=== PATIENT | female | born 1960 | race Caucasian/White ===

== ENCOUNTER 2020-07-05 12:43 | Emergency (ER) | payer BC, OTHER ==
[~2020-07-05] VITALS: Ht 162.6 cm; Wt 52.3 kg
--- NOTE | 2020-07-05 13:18 | ED Chest Pain ---
General Chief Complaint: Chest Pain Stated Complaint: CHEST PAIN; HIGH BP Source: patient Exam Limitations: no limitations History of Present Illness Date Seen by Provider: Jul 05, 2020 Time Seen by Provider: 13:00 Initial Comments 59-year-old female presents with onset of chest discomfort/pressure occurring about 1 hour prior to arrival. States that she was at work and started to fill lightheaded and weak. States that this normally doesn't happen to her so she was concerned with nurse's office and had her blood pressure checked and it was 120/80, which she states is elevated for her. Denies recent illness, fever or chills, concern of COVID-19 Allergies and Home Medications Allergies Coded Allergies: No Known Drug Allergies (Unverified , 07/05/20) Patient Home Medication List Home Medication List Reviewed: Yes Review of Systems Review of Systems Constitutional: No chills, No diaphoresis; dizziness; No fever; malaise, weakness EENTM: No Symptoms Reported Respiratory: Denies Cough, Denies SOA at Rest Cardiovascular: Denies Chest Pain ("pressure"), Denies Edema, Denies Irregular Heart Rate; Lightheadedness; Denies Palpitations, Denies Syncope Gastrointestinal: Denies Abdominal Pain, Denies Diarrhea, Denies Nausea, Denies Poor Appetite, Denies Vomiting Musculoskeletal: No back pain, No joint pain, No muscle pain Skin: No change in color, No rash Psychiatric/Neurological: Denies Headache, Denies Numbness, Denies Paresthesia, Denies Pre-Existing Deficit, Denies Seizure Past Locaslj-Obzcid-Ugddbl Hx Past Med/Social Hx: Reviewed Nursing Past Med/Soc Hx Physical Exam Vital Signs Vital Signs - First Documented Capillary Refill : Height, Weight, BMI Height: '" Weight: lbs. oz. kg; BMI Method: General Appearance: No Apparent Distress, WD/WN HEENT: PERRL/EOMI, Normal ENT Inspection Neck: Non Tender, Supple Respiratory: Chest Non Tender, Lungs Clear, Normal Breath Sounds, No Accessory Muscle Use, No Respiratory Distress Cardiovascular: Regular Rate, Rhythm, No Edema, No Gallop, No JVD, Normal Peripheral Pulses Gastrointestinal: Normal Bowel Sounds, Non Tender, Soft Extremity: Normal Capillary Refill, Non Tender, No Calf Tenderness Neurologic/Psychiatric: Alert, Oriented x3, No Motor/Sensory Deficits, Normal Mood/Affect Skin: Normal Color, Warm/Dry Progress/Results/Core Measures Results/Orders Lab Results Laboratory Tests Test 07/05/20 13:00 07/05/20 14:38 07/05/20 15:23 Range/Units White Blood Count 7.2 4.3-11.0 10^3/uL Red Blood Count 4.12 L 4.35-5.85 10^6/uL Hemoglobin 12.1 11.5-16.0 G/DL Hematocrit 38 35-52 % Mean Corpuscular Volume 91 80-99 FL Mean Corpuscular Hemoglobin 29 25-34 PG Mean Corpuscular Hemoglobin Concent 32 32-36 G/DL Red Cell Distribution Width 13.2 10.0-14.5 % Platelet Count 250 130-400 10^3/uL Mean Platelet Volume 10.4 7.4-10.4 FL Immature Granulocyte % (Auto) 0 % Neutrophils (%) (Auto) 50 42-75 % Lymphocytes (%) (Auto) 39 12-44 % Monocytes (%) (Auto) 8 0-12 % Eosinophils (%) (Auto) 2 0-10 % Basophils (%) (Auto) 0 0-10 % Neutrophils # (Auto) 3.6 1.8-7.8 X 10^3 Lymphocytes # (Auto) 2.8 1.0-4.0 X 10^3 Monocytes # (Auto) 0.6 0.0-1.0 X 10^3 Eosinophils # (Auto) 0.2 0.0-0.3 10^3/uL Basophils # (Auto) 0.0 0.0-0.1 10^3/uL Immature Granulocyte # (Auto) 0.0 0.0-0.1 10^3/uL D-Dimer 0.62 H 0.00-0.49 UG/ML Sodium Level 139 135-145 MMOL/L Potassium Level 4.0 3.6-5.0 MMOL/L Chloride Level 103 98-107 MMOL/L Carbon Dioxide Level 26 21-32 MMOL/L Anion Gap 10 5-14 MMOL/L Blood Urea Nitrogen 14 7-18 MG/DL Creatinine 0.79 0.60-1.30 MG/DL Estimat Glomerular Filtration Rate > 60 BUN/Creatinine Ratio 18 Glucose Level 103 70-105 MG/DL Calcium Level 9.4 8.5-10.1 MG/DL Corrected Calcium 9.2 8.5-10.1 MG/DL Total Bilirubin 0.2 0.1-1.0 MG/DL Aspartate Amino Transf (AST/SGOT) 18 5-34 U/L Alanine Aminotransferase (ALT/SGPT) 13 0-55 U/L Alkaline Phosphatase 72 40-136 U/L Troponin I < 0.30 < 0.30 <0.30 NG/ML Total Protein 7.1 6.4-8.2 GM/DL Albumin 4.3 3.2-4.5 GM/DL My Orders Orders - ROVENSTMEGHANA SCOTT DO Ed Iv/Invasive Line Start (07/05/20 13:13) Cbc With Automated Diff (07/05/20 13:13) Comprehensive Metabolic Panel (07/05/20 13:13) Fibrin Degradation Products (07/05/20 13:13) Troponin I Fs (07/05/20 13:13) Chest 1 View Ap/Pa Only (07/05/20 13:13) Ekg Tracing (07/05/20 13:13) Troponin I Fs (07/05/20 15:00) Ekg Tracing (07/05/20 15:00) Ct Angio Chest W (07/05/20 14:32) Iohexol Injection (Omnipaque 350 Mg/Ml 1 (07/05/20 14:45) Received Contrast (Hold Metformin- Contr (07/05/20 14:45) Sodium Chloride Flush (Catheter Flush Sy (07/05/20 14:45) Ns (Ivpb) (Sodium Chloride 0.9% Ivpb Bag (07/05/20 14:45) Coronavirus Sars-Cov-2 So 2018 (07/05/20 14:36) Medications Given in ED Current Medications Medications Dose Ordered Sig/Dell Route Start Time Stop Time Status Last Admin Dose Admin Iohexol 100 ml ONCE ONCE IV 07/05/20 14:45 07/05/20 14:46 DC 07/05/20 15:00 100 ML Sodium Chloride 10 ml NEEDED PRN IV 07/05/20 14:45 07/05/20 15:00 10 ML Sodium Chloride 100 ml ONCE ONCE IV 07/05/20 14:45 07/05/20 14:46 DC 07/05/20 15:00 100 ML Vital Signs/I&O 07/05/20 07/05/20 07/05/20 12:50 12:50 16:20 Temp 35.9 36.1 Pulse 78 70 Resp 15 12 B/P (MAP) 139/78 (98) 153/96 Pulse Ox 98 100 O2 Delivery Room Air Room Air Room Air Initial ECG Impression Date: Jul 05, 2020 Initial ECG Impression Time: 13:03 Initial ECG Rate: 75 Initial ECG Rhythm: Normal Sinus Initial ECG Intervals: Normal Initial ECG Impression: Normal Initial ECG Comparisson: No Previous ECG Available EKG : EKG Time: 15:27 Rate: 66 Rhythm: Normal Sinus Intervals: Normal ECG Comparisson: Unchanged ECG Impression: Normal Comment no change p [address] changes Diagnostic Imaging Diagonstic Imaging: Xray Comments Portable AP view of the chest is obtained. No previous studies available this time for comparison. Heart size and pulmonary vascularity are within normal limits. There is no evidence of pneumothorax or consolidation. Tiny calcified granuloma seen in the left midlung. There is also approximately 1 cm rounded density in the apical aspect of the right upper lobe. This may be calcified. No consolidation, pneumothorax or pleural fluid is identified. IMPRESSION: Probable granulomatous residua in the lungs. 1 cm nodule in the right upper lobe is most suggestive of calcified granuloma although correlation with older studies if possible would be useful. CT imaging could be considered for further characterization. Dictated on workstation # [id number] Dict: 07/05/20 1342 Trans: 07/05/20 1349 [facility] [id number] Interpreted by: DARWIN LEE MD Electronically signed by: IMPRESSION: 1. There is no evidence for an acute cardiopulmonary abnormality. In particular, there is no sign of a pulmonary embolus or of a dissection. 2. The nodular density in the right upper lung is of uncertain etiology. Considerations and recommendations as above. Dictated on workstation # [id number] Dict: 07/05/20 1511 Trans: 07/05/20 1530 [facility] [id number] Interpreted by: SHIRLEY MOYER MD Electronically signed by: Departure Impression Primary Impression: Chest pain Qualified Codes: R07.9 - Chest pain, unspecified Additional Impressions: Dizziness Lung nodule Disposition: HOME, SELF-CARE Condition: Stable Departure-Patient Inst. Decision time for Depature: 16:13 Referrals: POPPY NINO MD Patient Instructions: Dizziness, Nonvertigo, (DC), Chest Pain (DC), Pulmonary Nodule Add. Discharge Instructions: See your PCP in 1 week. Follow up at the nearest ER for any worsening of your symptoms. You have been tested for Covid-19.....at this time you should "self quarantine" until you receive a call with your results. You should also see your PCP in the next 2 weeks regarding the potential of further evaluation of your lung nodule noted on your chest x-ray and CT imaging. Call Dr Nino (Psychiatry Resident) to schedule a stress test next week. Call 911 or return to the nearest ER for any worsening symptoms of chest pain. You are advised to take a baby aspirin (81mg) daily. All discharge instructions reviewed with patient and/or family. Voiced understanding. MEGHANA MEJÍA DO Jul 05, 2020 13:18
--- NOTE | 2020-07-05 13:49 | Diagnostic Imaging Report ---
Indication: Chest pain Portable AP view of the chest is obtained. No previous studies available this time for comparison. Heart size and pulmonary vascularity are within normal limits. There is no evidence of pneumothorax or consolidation. Tiny calcified granuloma seen in the left midlung. There is also approximately 1 cm rounded density in the apical aspect of the right upper lobe. This may be calcified. No consolidation, pneumothorax or pleural fluid is identified. IMPRESSION: Probable granulomatous residua in the lungs. 1 cm nodule in the right upper lobe is most suggestive of calcified granuloma although correlation with older studies if possible would be useful. CT imaging could be considered for further characterization. Dictated by: Dictated on workstation # [id number]
[2020-07-05 13:59] LABS: HEMATOCRIT 38 % (35-52); HEMOGLOBIN 12.1 G/DL (11.5-16.0); MEAN CORPUSCULAR HEMOGLOBIN 29 PG (25-34); MEAN CORPUSCULAR HGB CONC 32 G/DL (32-36); MEAN CORPUSCULAR VOLUME 91 FL (80-99); PLATELET COUNT 250 10^3/uL (130-400); WHITE BLOOD COUNT 7.2 10^3/uL (4.3-11.0)
[2020-07-05 14:00] LABS: BASOPHILS % (AUTO) 0 % (0-10); EOSINOPHILS # (AUTO) 0.2 10^3/uL (0.0-0.3); EOSINOPHILS % (AUTO) 2 % (0-10); LYMPHOCYTES # (AUTO) 2.8 X 10^3 (1.0-4.0); LYMPHOCYTES % (AUTO) 39 % (12-44); MEAN PLATELET VOLUME 10.4 FL (7.4-10.4); MONOCYTES # (AUTO) 0.6 X 10^3 (0.0-1.0); MONOCYTES % (AUTO) 8 % (0-12); NEUTROPHILS # (AUTO) 3.6 X 10^3 (1.8-7.8); NEUTROPHILS % (AUTO) 50 % (42-75); SODIUM 139 MMOL/L (135-145)
[2020-07-05 14:01] LABS: ALANINE AMINOTRANSFERASE 13 U/L (0-55); ALBUMIN 4.3 GM/DL (3.2-4.5); ALKALINE PHOSPHATASE 72 U/L (40-136); BILIRUBIN,TOTAL 0.2 MG/DL (0.1-1.0); BUN/CREATININE RATIO 18; CALCIUM 9.4 MG/DL (8.5-10.1); CARBON DIOXIDE 26 MMOL/L (21-32); CHLORIDE 103 MMOL/L (98-107); CREATININE SERUM 0.79 MG/DL (0.60-1.30); GFR ESTIMATED > 60; GLUCOSE 103 MG/DL (70-105); TOTAL PROTEIN 7.1 GM/DL (6.4-8.2)
[2020-07-05] MEDS ORDERED: HOLD METFORMIN - RECEIVED CONTRAST 20 ML VIAL IV SCH (14:45)
[2020-07-05] MEDS ORDERED: CATHETER FLUSH 10 ML SYR IV PRN (14:45)
[2020-07-05] MEDS ORDERED: NS 100 ML (IVPB) BAG IV ONE (14:45)
[2020-07-05] MEDS ORDERED: IOHEXOL 350 MG/ML 100 ML (OMNIPAQUE 350) VIAL IV ONE (14:45)
--- NOTE | 2020-07-05 15:30 | Diagnostic Imaging Report ---
PROCEDURE: CT angiography of the chest with contrast. TECHNIQUE: Multiple contiguous axial images were obtained through the chest after uneventful bolus administration of intravenous contrast. 3D reconstructed CTA MIP acquisitions were also performed. Auto Exposure Controls were utilized during the CT exam to meet ALARA standards for radiation dose reduction. INDICATION: Chest pain, elevated D-dimer There are no prior CTA chest examinations available for comparison. The plain film examination of the chest performed prior to this study failed to show any evidence for an acute cardiopulmonary abnormality. On this study, there is no defect within the pulmonary arteries to indicate a pulmonary embolus. The aorta is not abnormally dilated and there is no sign of a dissection. The heart size is within normal limits. Sparse coronary artery calcifications are evident. There is no sign of failure, pneumonia or of a pleural effusion to indicate an acute abnormality. The bone windows are unremarkable for a fracture or for a destructive lesion. The report of the plain film exam astutely noted a 1 cm nodule in the right upper lobe. That finding is again evident on this study (image 25 of 152). This nodule has a smooth margin but is not clearly calcified. I do suspect that this is a benign process. The possibility that this is related to a malignant lesion cannot be entirely excluded however. If previous exams are available, they would be helpful for comparison. If there are no previous studies available, then a PET CT would be recommended to exclude malignancy in this area. If the PET/CT exam is not performed, then a short-term (three-month) follow-up CT chest exam would be recommended. There is no mediastinal or hilar adenopathy. The thyroid gland, where visualized, is unremarkable. There is no obvious breast mass identified. The sections through the upper abdomen failed to show any sign of an acute abnormality. IMPRESSION: 1. There is no evidence for an acute cardiopulmonary abnormality. In particular, there is no sign of a pulmonary embolus or of a dissection. 2. The nodular density in the right upper lung is of uncertain etiology. Considerations and recommendations as above. Dictated by: Dictated on workstation # [id number]
[2020-07-05 16:20] VITALS: BP 153/96
== END 2020-07-05 16:20 | disposition home or self-care (01) ==
LOC: ER FS 12:45
DX: R07.9 Chest pain, unspecified (principal); R42 Dizziness and giddiness; R91.1 Solitary pulmonary nodule; Z20.828 Contact with and (suspected) exposure to other viral communicable diseases
CPT/HCPCS: 36415; 71045; 71275; 80053; 84484; 85025; 85379; 93005; 99284; U0002; 87635

== ENCOUNTER → 2021-09-03 | Outpatient (CLI) | payer BC, OTHER ==
--- NOTE | 2021-09-03 17:38 | Diagnostic Imaging Report ---
PROCEDURE: MRI lumbar spine. TECHNIQUE: Multiplanar, multisequence MRI of the lumbar spine was performed without contrast. INDICATION: Back and pelvic pain. No priors. There is mild leftward convexity mid to upper lumbar scoliotic curvature. No segmentation anomaly or dysraphism. The conus appeared normal. There is normal dispersal of the nerves of the cauda equina. There is no fracture or acute marrow signal pathology. There is some mild edematous Modic type I changes at L3-L4 and L5-S1 with some fatty type II changes across the L4-L5 endplates. Pedicles appeared intact. No paravertebral mass, hemorrhage or fluid collection. Ligamentous structures unremarkable. The T12-L1 and the L1-L2 levels appeared unremarkable aside from mild anteriorly directed endplate osteophytes. There was no stenosis. L2-L3: There is disc desiccation, disc stature loss, endplate osteophytes, and circumferential disc bulge. No focal herniation and no resultant significant narrowing of the spinal canal, neural foramina or lateral recesses. L3-L4: There is disc desiccation, stature loss and diffuse annular bulge with small right paramedian broad-based disc protrusion indenting the ventral thecal sac but resulting in no substantial degree of canal stenosis. This level shows mild to moderate right foraminal stenosis. The left foramen, however, widely patent. L4-L5: There is disc desiccation, stature loss, and diffuse annular bulge with endplate osteophytes. The findings result in moderate severity of left and moderate right neural foraminal stenosis but no significant canal narrowing. L5-S1: Disc desiccation and bulge with facet arthrosis are present but no significant canal stenosis. There is borderline right and moderate left foraminal stenoses. IMPRESSION: No substantial degree of canal narrowing, multilevel [id number] foraminal stenoses owing to disc material and endplate osteophytes as described. Some scoliotic curvature convex to the left and multilevel Modic changes to the endplates as described but no acute appearing bony pathology or fracture Dictated by: Dictated on workstation # [id number]
== END ==
LOC: RAD 14:45
PROVIDERS: ATTEND Nurse Practitioner Family
DX: M47.817 Spondylosis without myelopathy or radiculopathy, lumbosacral region (principal); M51.26 Other intervertebral disc displacement, lumbar region; M51.27 Other intervertebral disc displacement, lumbosacral region; M51.36 Other intervertebral disc degeneration, lumbar region; M51.37 Other intervertebral disc degeneration, lumbosacral region; M48.061 Spinal stenosis, lumbar region without neurogenic claudication
CPT/HCPCS: 72148

== ENCOUNTER 2021-09-29 08:44 | Emergency (ER) | payer OTHER ==
[~2021-09-29] VITALS: Ht 162.5 cm; Wt 52.3 kg
--- OUTSIDE RECORDS SUMMARY | 2021-09-29 08:48 | XMS REPORT | Clinical Summary ---
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 Name Role Phone PCP Unavailable Allergies Comments Active Allergy Reactions Severity Noted Date Codeine Headache 10/17/2019 Medications Not on file Active Problems Not on file Social History Date Tobacco Use Types Packs/Day Years Used Never Assessed Sex Assigned at Date Recorded Not on file Last Filed Vital Signs Not on file Plan of Treatment Not on file Results Not on filefrom Last 3 Months Insurance Type Payer Benefit Subscriber ID Effective Phone Address Plan / Dates Group [facility] OUT OF [id number] 2019-[address] PREF [facility] [id number] [place] [address] (Home) [place], [place] [address] [address] [place] Personal/F Self [address] [place] [address] (Home) [place] [address] Advance Directives For more information, please contact: [phone] 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
[2021-09-29] MEDS ORDERED: fentaNYL INJ 100 MCG/2 ML AMP IM STA (09:04)
[2021-09-29] MEDS ORDERED: ORPHENADRINE 60 MG/2 ML (NORFLEX) AMP (ED ONLY) IM STA (09:04)
--- NOTE | 2021-09-29 09:20 | ED General ---
General Chief Complaint: Back Problems Stated Complaint: BACK PAIN Nursing Triage Note: Patient presents to the ED with c/o back pain. She reports that she has recently been diagnosed with DDD. Pain worsening last night. Went to urgent care and received IM Toradol and Dexamethosone with no pain relief. Also states she took 1/2 tablet of Valium. Denies any injury. Source of Information: Patient, Old Records History of Present Illness Date Seen by Provider: Sep 29, 2021 Time Seen by Provider: 08:49 Initial Comments 60 yo female presenting with complaints of acute pain in left lower back and hip that started last night. She denies any fall or injury or strain or lifting that might of triggered this. She does have some chronic low back pain that has been worse recently and had an MRI September 03 that showed degenerative spine changes. She states that the pain she is having now is new and different. She did try taking a Valium 5 mg that she has prescribed from nurse practitioner Mikey through the [facility] clinic. She states that that really was not making any difference with her pain. She still felt like she was having spasms and sharp pains especially in her left hip with trying to sit or put pressure on her hip. She denies any loss of bowel or bladder control. She has had no pain shooting down her leg with this acute pain since last night. She has no chronic medications at home for pain in regards to her back, other than the Valium. She had tried going to Urgent Care this morning and they had given her Dexamethasone, Depo-Medrol, Toradol. She did not get any relief of her pain with those meds so she came to the ED. Timing/Duration: 12 Hours Severity: Severe Modifying Factors: improves with Movement (sitting and moving as well as walking makes the pain worse in left hip and low back); worse with Other (sitting or laying down makes the pain worse) Associated Systoms: No Chest Pain, No Cough, No Diaphoresis, No Fever/Chills, No Headaches, No Loss of Appetite, No Malaise, No Nausea/Vomiting, No Rash, No S eizure, No Shortness of Air, No Syncope, No Weakness Allergies and Home Medications Allergies Coded Allergies: codeine (Verified Adverse Reaction, Unknown, migraine, 09/29/21) phenazopyridine (Verified Adverse Reaction, Unknown, vomiting, 09/29/21) Uncoded Allergies: sodium pentathol (Adverse Reaction, Unknown, 09/29/21) Patient Home Medication List Home Medication List Reviewed: Yes Gabapentin (Gabapentin) 100 Mg Capsule, 100 MG PO Q8H Prescribed by: FRANNY NEFF on 09/29/21 1056 Oxycodone HCl/Acetaminophen (Oxycodone-Acetaminophen 5-325) 1 Each Tablet, 1 EACH PO Q4H PRN for PAIN-SEVERE (8-10) Prescribed by: FRANNY NEFF on 09/29/21 1057 Review of Systems Review of Systems Constitutional: No chills, No fever EENTM: no symptoms reported Respiratory: no symptoms reported Cardiovascular: no symptoms reported Gastrointestinal: no symptoms reported Genitourinary: see HPI Musculoskeletal: see HPI Skin: No rash Psychiatric/Neurological: Denies Numbness, Denies Paresthesia Hematologic/Lymphatic: Denies Blood Clots Past Yuqakkt-Yduroj-Mfuokv Hx Patient Social History Tobacco Use?: No Use of E-Cig and/or Vaping dev: No Substance use?: No Alcohol Use?: No Pt feels they are or have been: No Immunizations Up To Date Influenza Vaccine Up-to-Date: No; Not Current First/Initial COVID19 Vaccinat: Not currently vaccinated Seasonal Allergies Seasonal Allergies: No Past Medical History Surgery/Hospitalization HX: DDD; Gastritis; Chronic Constipation; Bennets Esophagus; Hernia repair; Tubal ligation. Surgeries: Yes (bilateral hernia repair) Tubal Ligation Respiratory: Yes Asthma Cardiac: No Neurological: Yes Headaches /Migraines Genitourinary: No Gastrointestinal: No Musculoskeletal: Yes (back pain) Endocrine: No HEENT: No Cancer: No Psychosocial: No Integumentary: No Blood Disorders: No Physical Exam Vital Signs Vital Signs - First Documented 09/29/21 08:50 Temp 36.0 Pulse 92 Resp 18 B/P (MAP) 121/82 (95) Pulse Ox 96 O2 Delivery Room Air Capillary Refill : Less Than 3 Seconds Height, Weight, BMI Height: '" Weight: lbs. oz. kg; 19.00 BMI Method: General Appearance: Anxious, Moderate Distress (swearing and crying at times with pain in left hip and low back), Thin HEENT: PERRL/EOMI Neck: Full Range of Motion, Normal Inspection, Non Tender, Supple Rectal: Deferred Back: No CVA Tenderness, No Vertebral Tenderness, Muscle Spasm (left lower lumbar paraspinal area) Extremity: Normal Capillary Refill, No Calf Tenderness, No Pedal Edema, Other (no pain over SI joint. increased pain with gait and has antalgic gait) Neurologic/Psychiatric: Alert, Oriented x3, security escort II-XII Norm as Tested, Other (anxious) Skin: Normal Color, Warm/Dry Progress/Results/Core Measures Suspected Sepsis SIRS Temperature: Pulse: 92 Respiratory Rate: 18 Blood Pressure 121 /82 Mean: 95 Results/Orders My Orders Orders - FRANNY NEFF MD Orphenadrine Inj (Ed Only) (Norflex Inje (09/29/21 09:04) Fentanyl Inj (Sublimaze Injection) (09/29/21 09:04) Ct Abdomen/Pelvis Wo (09/29/21 09:27) Gabapentin Capsule/Tablet (Neurontin Cap (09/29/21 10:50) Vital Signs/I&O 09/29/21 09/29/21 08:50 11:10 Temp 36.0 36.0 Pulse 92 92 Resp 18 18 B/P (MAP) 121/82 (95) 121/82 Pulse Ox 96 96 O2 Delivery Room Air Room Air Capillary Refill : Less Than 3 Seconds Blood Pressure Mean: 95 Progress Note #1: Progress Note Since she has already had steroids and NSAID will try a different muscle relaxer and narcotic pain shot to see if can help her calm down enough to be able to have her lay on CT scan table for noncontrast study to look for bony abnormality to be causing her acute pain. Progress Note #2: Time: 09:[address] scan does not show acute bony abnormality or acute process to explain worsening of pain. Can offer gabapentin from a nerve inflammation stand point to see if that might help calm things down and help her pain better. Follow up with clinic and may need to see pain management or instructional systems specialist. Add on Percocet as she reports tolerating that in the past for pain. Try alternating ice and heat for pain. she also asked about using lidocaine patches and advised she could try OTC Salonpas and generic Lidocaine patches to see if it helps until she can get with clinic and specialists. Diagnostic Imaging Diagonstic Imaging: CT Plain Films/CT/US/NM/MRI: abdomen, pelvis Comments NAME: [facility]AS [facility] REC#: [id number] PT STATUS: REG ER : 1960 PHYSICIAN: FRANNY NEFF MD ADMIT DATE: 09/29/21/ER FS Draft Date of Exam:09/29/21 CT ABDOMEN/PELVIS WO PROCEDURE: CT abdomen and pelvis without contrast. TECHNIQUE: Multiple contiguous axial images were obtained through the abdomen and pelvis without the use of intravenous contrast. Auto Exposure Controls were utilized during the CT exam to meet ALARA standards for radiation dose reduction. INDICATION: Left hip pain radiating to the back. COMPARISON: No prior studies are available for comparison. FINDINGS: The lung bases are clear. The liver and gallbladder are unremarkable. The pancreas and spleen are unremarkable. No adrenal mass is detected. No definite renal calculi or hydronephrosis is detected. Aorta is normal caliber. There is no aneurysm. The bowel loops are normal caliber. There is no evidence of obstruction. The bladder and uterus are unremarkable. No free fluid or fluid collection is seen. There is no free air. No inflammatory changes are seen. Bony structures are nonacute. There is left convexity scoliotic curvature to the lumbar spine. IMPRESSION: Unremarkable noncontrast CT of abdomen and pelvis. No acute abnormality is identified. Dictated on workstation # [id number] Dict: 09/29/21 0947 Trans: 09/29/21 0951 [facility] [id number] Interpreted by: PEDRITO MUÑOZ MD Electronically signed by: Reviewed: Reviewed by Me Departure Impression Primary Impression: Acute pain of left hip Additional Impression: Lumbar back pain with radiculopathy affecting left lower extremity Disposition: HOME, SELF-CARE Condition: Stable Departure-Patient Inst. Decision time for Depature: 10:52 Referrals: LINUS WARD APRN (PCP) Primary Care Physician [facility] (Family) Primary Care Physician Patient Instructions: Hip Pain ED, Opioids for Short-Term Treatment of Pain ED, Low Back Pain ED, Radiculopathy Add. Discharge Instructions: The CT scan does not show any acute fracture, joint swelling, or fluid collection to indicate an infection. Your MRI from September 03 did show narrowing around the foraminal areas of all levels of your Lumbar spine. This can be flared up and causing a "pinch" or extra inflammation around your nerves where they exit the vertebrae and can be causing pain into your hip and leg. The narcotic pain medicine can cause constipation on top of your chronic constipation so make sure to be diligent in treating this with laxatives and stay ahead of getting blocked up with the narcotic. The Gabapentin (Neurontin) medicine helps with nerve pain and inflammation. It can be titrated up to a higher dose to help with pain and inflammation of the nerves. Start with 100 mg up to every 8 hours to see how you tolerate it and how it helps calm the pain in your hip and low back down. Call the clinic in the am about follow up and you may need to see Pain management or senior computer specialist about injections or other treatment options for your back. All discharge instructions reviewed with patient and/or family. Voiced understanding. Scripts Oxycodone HCl/Acetaminophen (Oxycodone-Acetaminophen 5-325) 1 Each Tablet 1 EACH PO Q4H PRN for PAIN-SEVERE (8-10) MDD 6 for 5 Days, #30 TAB 0 Refills Prov: FRANNY NEFF MD 09/29/21 Gabapentin (Gabapentin) 100 Mg Capsule 100 MG PO Q8H for Neuropathic pain for 10 Days, #30 CAP 0 Refills Prov: FRANNY NEFF MD 09/29/21 FRANNY NEFF MD Sep 29, 2021 09:20
--- NOTE | 2021-09-29 09:52 | Diagnostic Imaging Report ---
PROCEDURE: CT abdomen and pelvis without contrast. TECHNIQUE: Multiple contiguous axial images were obtained through the abdomen and pelvis without the use of intravenous contrast. Auto Exposure Controls were utilized during the CT exam to meet ALARA standards for radiation dose reduction. INDICATION: Left hip pain radiating to the back. COMPARISON: No prior studies are available for comparison. FINDINGS: The lung bases are clear. The liver and gallbladder are unremarkable. The pancreas and spleen are unremarkable. No adrenal mass is detected. No definite renal calculi or hydronephrosis is detected. Aorta is normal caliber. There is no aneurysm. The bowel loops are normal caliber. There is no evidence of obstruction. The bladder and uterus are unremarkable. No free fluid or fluid collection is seen. There is no free air. No inflammatory changes are seen. Bony structures are nonacute. There is left convexity scoliotic curvature to the lumbar spine. IMPRESSION: Unremarkable noncontrast CT of abdomen and pelvis. No acute abnormality is identified. Dictated by: Dictated on workstation # [id number]
[2021-09-29] MEDS ORDERED: GABAPENTIN 100 MG (NEURONTIN) CAP PO STA (10:50)
[2021-09-29] MEDS ORDERED: OXYC1TAB11 PO (10:56)
[2021-09-29] MEDS ORDERED: GABA-486 PO (10:56)
[2021-09-29 11:10] VITALS: BP 121/82
== END 2021-09-29 11:04 | disposition home or self-care (01) ==
LOC: EDUNIT# 08:44 → ER FS 08:45
DX: M25.552 Pain in left hip (principal); M54.16 Radiculopathy, lumbar region; J45.909 Unspecified asthma, uncomplicated
CPT/HCPCS: 74176

== ENCOUNTER 2021-10-23 13:20 | Emergency (ER) | payer OTHER ==
[~2021-10-23 13:20] MED LIST: GABA-486 PO; OXYC1TAB11 PO
--- NOTE | 2021-10-23 13:54 | ED General ---
General Chief Complaint: General Problems/Pain Stated Complaint: ABD PAIN & PROTRUSION Source of Information: Patient, Old Records History of Present Illness Date Seen by Provider: Oct 23, 2021 Time Seen by Provider: 13:24 Initial Comments 60-year-old female presenting with complaints of left groin pain and swelling since. Down to have a bowel movement. She states that this has been going on for about the last 10 days. She has chronic constipation and normally has a bowel movement about once every 10 days when she does declines. She does take Linzess which tries to keep her stools a little more softer but does not make her actually have a bowel movement. She had recently been taking oxycodone for severe pain in her lower back and sciatica type pain. She also just had injections in her low back for sciatica. She states that she was concern for possible hernia and had tried to get into the clinic however they did not have any openings until Thursday. Patient felt that she could not wait any longer so she reports that the clinic told her she needed to be seen right away and to go to the emergency department to make sure she did not have a strangulated hernia. She states that she does have some intermittent nausea but has not had any vomiting. She is still passing gas. Her pain is primarily a burning sensation to the area that was not improved at all with taking the pain medication or with having steroid shots to her back. Timing/Duration: 1 Week (more than a week of symptoms) Severity: Severe Modifying Factors: worse with Movement Associated Systoms: No Chest Pain, No Cough, No Diaphoresis, No Fever/Chills, No Headaches, No Loss of Appetite, No Malaise; Nausea/Vomiting (nausea but no emesis); No Rash, No Seizure, No Shortness of Air, No Syncope, No Weakness Allergies and Home Medications Allergies Coded Allergies: codeine (Verified Adverse Reaction, Unknown, migraine, 09/29/21) phenazopyridine (Verified Adverse Reaction, Unknown, vomiting, 09/29/21) Uncoded Allergies: sodium pentathol (Adverse Reaction, Unknown, 09/29/21) Patient Home Medication List Home Medication List Reviewed: Yes Gabapentin (Gabapentin) 100 Mg Capsule, 100 MG PO Q8H Prescribed by: FRANNY NEFF on 09/29/21 8798 Oxycodone HCl/Acetaminophen (Oxycodone-Acetaminophen 5-325) 1 Each Tablet, 1 EACH PO Q4H PRN for PAIN-SEVERE (8-10) Prescribed by: FRANNY NEFF on 09/29/21 1057 Review of Systems Review of Systems Constitutional: No chills, No fever EENTM: no symptoms reported Respiratory: no symptoms reported Cardiovascular: no symptoms reported Gastrointestinal: see HPI Genitourinary: No dysuria, No frequency Musculoskeletal: see HPI Skin: see HPI; No change in color; other (burning sensation with swollen lump to left groin) Psychiatric/Neurological: See HPI, Anxiety Past Usuwoaj-Zcgmue-Ubbkjm Hx Patient Social History Tobacco Use?: No Immunizations Up To Date First/Initial COVID19 Vaccinat: Not currently vaccinated Seasonal Allergies Seasonal Allergies: No Past Medical History Surgery/Hospitalization HX: DDD; Gastritis; Chronic Constipation; Barrets Esophagus; Hernia repair; Tubal ligation. Surgeries: Yes (bilateral hernia repair) Tubal Ligation Respiratory: Yes Asthma Cardiac: No Neurological: Yes Headaches /Migraines Genitourinary: No Gastrointestinal: No Musculoskeletal: Yes (back pain) Endocrine: No HEENT: No Cancer: No Psychosocial: No Integumentary: No Blood Disorders: No Physical Exam Vital Signs Vital Signs - First Documented 10/23/21 13:25 Temp 36.8 Pulse 80 Resp 18 B/P (MAP) 147/80 (102) Pulse Ox 98 O2 Delivery Room Air Capillary Refill : Height, Weight, BMI Height: '" Weight: lbs. oz. kg; 19.00 BMI Method: General Appearance: Anxious, Thin Respiratory: Chest Non Tender, Lungs Clear, Normal Breath Sounds Cardiovascular: Regular Rate, Rhythm, Normal Peripheral Pulses Gastrointestinal: Normal Bowel Sounds, No Pulsatile Mass, Soft; No Distended, No Guarding, No Hernia, No Rebound; Tenderness (left inguinal area) Rectal: Deferred Neurologic/Psychiatric: Alert, Oriented x3 Skin: Normal Color, Warm/Dry Progress/Results/Core Measures Suspected Sepsis SIRS Temperature: Pulse: Respiratory Rate: Blood Pressure / Mean: Results/Orders My Orders Orders - FRANNY NEFF MD Us Pelvis Non-Ob Limited [id number] (10/23/21 13:39) Vital Signs/I&O 10/23/21 10/23/21 13:25 15:06 Temp 36.8 36.8 Pulse 80 80 Resp 18 18 B/P (MAP) 147/80 (102) 147/80 Pulse Ox 98 98 O2 Delivery Room Air Room Air Capillary Refill : Progress Note #1: Progress Note will check with [facility] to see if they have ultrasound available since there is not a tech here at [facility]. If no tech available then may have to do either a transfer to [facility] for ultrasound through the ED there or see about repeat CT scan possibly with contrast to look for hernia. Progress Note #2: Progress Note US was available from [facility] so ordered pelvis non-OB ultrasound to check for hernia or mass to account for her swelling. The burning sensation she has is likely due to neuropathic pain from irritated nerves in her lumbar spine. Encourage follow up with clinic for continued eval and concerns if US does not show anything today. Progress Note #3: Progress Note US was read out by Radiologist as no obstruction or sign of definite hernia. Recommend follow up with clinic for continued evaluation of her burning pain and swelling to left groin at times Diagnostic Imaging Diagonstic Imaging: Ultrasound Plain Films/CT/US/NM/MRI: pelvis Comments NAME: NICOLAS [facility] REC#: [id number] PT STATUS: REG ER : 1960 PHYSICIAN: FRANNY NEFF MD ADMIT DATE: 10/23/21/ER FS Draft Date of Exam:10/23/21 US PELVIS NON-OB LIMITED [id number] INDICATION: Left inguinal pain. COMPARISON: September 29, 2021. TECHNIQUE: Targeted ultrasound of the left inguinal region was performed on October 23, 2021. FINDINGS: No significant inguinal hernia identified. In particular, no bowel-containing inguinal hernia. No suspicious solid or cystic mass lesion identified. IMPRESSION: Unremarkable examination. In particular, no definite evidence of a bowel-containing inguinal hernia. Dictated on workstation # [id number] Dict: 10/23/21 1507 Trans: 10/23/21 1512 [id number] Interpreted by: MARY SWANN MD Electronically signed by: Reviewed: Reviewed by Me Departure Impression Primary Impression: Left inguinal pain Additional Impressions: Chronic constipation Pain of skin Disposition: 01 HOME, SELF-CARE Condition: Stable Departure-Patient Inst. Decision time for Depature: 15:01 Referrals: LINUS WARD APRN (PCP) Primary Care Physician [facility]/[place] (Family) Primary Care Physician Patient Instructions: Pelvic Pain ED, Constipation, Adult ED Add. Discharge Instructions: Follow up with the clinic for continued pain/concerns as the ultrasound today does not show signs of a hernia. This painful area may be still related to the nerve irritation from your spine. All discharge instructions reviewed with patient and/or family. Voiced understanding. FRANNY NEFF MD Oct 23, 2021 13:53
[2021-10-23 15:06] VITALS: BP 147/80
--- NOTE | 2021-10-23 15:13 | Diagnostic Imaging Report ---
INDICATION: Left inguinal pain. COMPARISON: September 29, 2021. TECHNIQUE: Targeted ultrasound of the left inguinal region was performed on October 23, 2021. FINDINGS: No significant inguinal hernia identified. In particular, no bowel-containing inguinal hernia. No suspicious solid or cystic mass lesion identified. IMPRESSION: Unremarkable examination. In particular, no definite evidence of a bowel-containing inguinal hernia. Dictated by: Dictated on workstation # [id number]
== END 2021-10-23 15:22 | disposition home or self-care (01) ==
LOC: EDUNIT# 13:20 → ER FS 13:22
DX: K59.00 Constipation, unspecified (principal); L98.9 Disorder of the skin and subcutaneous tissue, unspecified; J45.909 Unspecified asthma, uncomplicated
CPT/HCPCS: 76857

== ENCOUNTER → 2021-11-11 | Outpatient (CLI) | payer SELFPAY | END | disposition home or self-care (01) | LOC: PREOP 05:31 | PROVIDERS: ATTEND Surgery | DX: Z01.818 Encounter for other preprocedural examination (principal) ==

== ENCOUNTER → 2022-01-28 | Outpatient (CLI) | payer OTHER ==
--- NOTE | 2022-01-28 16:40 | Diagnostic Imaging Report ---
INDICATION: 61-year-old asymptomatic postmenopausal female COMPARISON: None available FINDINGS: AP Spine L1-L4: [BMD (g/cm2): 0.738] [T-Score: -3.9] [Z-Score: -2.1] [BMD Previous: na] [BMD % Change: na] LT Hip Neck: [BMD (g/cm2): 0.723] [T-Score: -2.3] [Z-Score: -0.7] LT Hip Total: [BMD (g/cm2):0.690] [T-Score:-2.5] [Z-Score: -1.2] [BMD Previous: na] [BMD % Change: na] RT Hip Neck: [BMD (g/cm2):0.728] [T-Score:-2.2] [Z-Score:-0.6] RT Hip Total: [BMD (g/cm2):0.707] [T-score:-2.4] [Z-Score:-1.1] [BMD Previous:na] [BMD % Change:na] *Indicates significant change from prior examination based on 95% confidence level. World Health Organization criteria for BMD interpretation classify patients as Normal (T-score at or above -1.0), Osteopenic (T-score between -1.0 and -2.5) or Osteoporotic (T-score at or below -2.5). LIMITATIONS AND MODIFICATION: None. FRACTURE RISK (FRAX SCORE): Not applicable as patient meets criteria for osteoporosis. IMPRESSION: 1. Osteoporosis. 2. Baseline examination. 3. See below National Osteoporosis Foundation guidelines on when to potentially initiate pharmacologic therapy. Based on the National Osteoporosis Foundation Guidelines, pharmacologic treatment should be initiated in any of the following, unless clinical conditions suggest otherwise: * Any patient with prior fragility fracture of the hip or vertebrae. A spine fracture indicates 5X risk for subsequent spine fracture and 2X risk for subsequent hip fracture. * Osteoporosis (T-score <-2.5). * Postmenopausal women and men age 50 and older with low bone mass/osteopenia (T-score between -1.0 and -2.5) by DXA and 10-year major osteoporotic fracture greater than 20% or a 10-year probability of hip fracture greater than 3%. These fracture risks are supplied above in the FRAX score, if applicable. * Clinician judgement and/or patient preferences may indicate treatment for people with 10-year fracture probabilities above or below these levels. Dictated by: Dictated on workstation # [id number]
== END ==
LOC: RAD 12:30
PROVIDERS: ATTEND Nurse Practitioner
DX: M81.0 Age-related osteoporosis without current pathological fracture (principal)
CPT/HCPCS: 77080

== ENCOUNTER → 2022-01-29 | Outpatient (CLI) | payer OTHER ==
--- NOTE | 2022-01-29 15:16 | Diagnostic Imaging Report ---
PROCEDURE: MRI lumbar spine without contrast. TECHNIQUE: Multiplanar, multisequence MRI of the lumbar spine was performed without contrast. INDICATION: Chronic low back pain. COMPARISON: 09/03/2021. FINDINGS: 5 lumbar type vertebral bodies are visualized with the last well-formed disc space designated L5-S1. No acute fracture or dislocation is seen in the lumbar spine. There is left convexity curvature of the thoracolumbar spine. Modic type I endplate degenerative changes are present at the L3-L4 level. Modic type II endplate degenerative changes are present at the L4-L5 level. No suspicious focal osseous lesions are seen. The conus terminates at the L1 level. No masses are seen associated with the conus or nerve roots of the cauda equina. No epidural collections are identified. Multilevel degenerative changes are seen in the lumbar spine with disc bulges, facet hypertrophy, and buckling of the ligamentum flavum. T12-L1: No significant spinal canal or foraminal stenosis. L1-L2: No significant spinal canal or foraminal stenosis. L2-L3: No significant spinal canal or foraminal stenosis. L3-L4: Right subarticular disc protrusion, facet hypertrophy, and buckling of ligamentum flavum results in no significant spinal canal narrowing, mild right lateral recess narrowing, and moderate right and mild left foraminal stenosis. L4-L5: Disc desiccation, facet hypertrophy, and buckling of the ligamentum flavum results in no significant spinal canal narrowing and mild right and moderate left foraminal stenosis. L5-S1: Disc desiccation, facet hypertrophy, and buckling of the ligamentum flavum results in no significant spinal canal stenosis and mild right and moderate left foraminal stenosis. Paravertebral soft tissues are unremarkable. IMPRESSION: 1. No acute fracture or dislocation in the lumbar spine. 2. Multilevel degenerative changes in the lumbar spine, greatest at L3-L4, L4-L5 and L5-S1. 3. Modic type I endplate degenerative changes at the L3-L4 level with Modic type II endplate degenerative changes at L4-L5. Dictated by: Dictated on workstation # [id number]
== END ==
LOC: RAD 12:30
PROVIDERS: ATTEND Nurse Practitioner
DX: M81.0 Age-related osteoporosis without current pathological fracture (principal); M47.816 Spondylosis without myelopathy or radiculopathy, lumbar region; M51.36 Other intervertebral disc degeneration, lumbar region; M47.817 Spondylosis without myelopathy or radiculopathy, lumbosacral region
CPT/HCPCS: 72148